=== PATIENT | male | born 1995 | race Caucasian/White ===

== ENCOUNTER 2019-08-16 07:40 | Emergency (ER) | payer SELFPAY ==
[2019-08-16 08:47] VITALS: BP 0/0
--- NOTE | 2019-08-16 08:48 | ED ---
Throat Pain/Nasal Congestion - HPI Summary HPI Summary: This pt is a 24yo M who presents to the ED with left upper jaw pain 4 days. Patient states symptoms have been worsening over the past 2 days. Has been using Anbesol and Orajel [id number] without relief. Has also been taking multiple doses of ibuprofen without relief. He has also tried Tylenol without relief. Patient currently rates his pain at 10/10, constant and throbbing. He denies any difficulty with swallowing or pain with swallowing. He denies any radiation of pain into the ear to the neck. He has never had a dental infection in the past. No history of dental abscesses. States he will follow- up with the dentist on Saturday. - History of Current Complaint Chief Complaint: EDDentalPain Time Seen by Provider: 08/16/19 07:54 Hx Obtained From: Patient Onset/Duration: Sudden Onset Severity: Moderate - Epiglottits Risk Factors Epiglottis Risk Factors: Negative - Allergies/Home Medications Allergies/Adverse Reactions: Allergies Allergy/AdvReac Type Severity Reaction Status Date / Time No Known Allergies Allergy Verified 08/16/19 07:45 PMH/Surg Hx/FS Hx/Imm Hx Previously Healthy: Yes - Immunization History Hx Pertussis Vaccination: No Immunizations Up to Date: Yes Infectious Disease History: No Infectious Disease History: Denies: Traveled Outside the [place] in Last 30 Days - Social History Occupation: Employed Full-time Lives: With Family Alcohol Use: Rare Hx Substance Use: No Substance Use Type: Reports: None Hx Tobacco Use: Yes Smoking Status (MU): Light Every Day Tobacco Smoker Review of Systems Negative: Fever, Chills, Fatigue, Skin Diaphoresis Positive: Dental Pain Negative: Palpitations, Chest Pain Negative: Cough Genitourinary: Negative Positive: no symptoms reported, see HPI Negative: Arthralgia, Myalgia Neurological: Negative All Other Systems Reviewed And Are Negative: Yes Physical Exam Triage Information Reviewed: Yes Vital Signs On Initial Exam: Initial Vitals Temp Pulse Resp BP Pulse Ox 97.7 F 59 18 145/85 98 08/16/19 07:42 08/16/19 07:42 08/16/19 07:42 08/16/19 07:42 08/16/19 07:42 Vital Signs Reviewed: Yes Appearance: Positive: Well-Appearing, Well-Nourished Skin: Positive: Warm, Skin Color Reflects Adequate Perfusion Head/Face: Positive: Normal Head/Face Inspection Eyes: Positive: EOMI, MARY, Conjunctiva Clear Dental: Positive: Other - dental pain to tooth #14 without signs of infection or drainage Neck: Positive: Supple, No Lymphadenopathy Respiratory/Lung Sounds: Positive: Clear to Auscultation, Breath Sounds Present Cardiovascular: Positive: RRR, Pulses are Symmetrical in both Upper and Lower Extremities Musculoskeletal: Positive: Strength/ROM Intact Neurological: Positive: Speech Normal Psychiatric: Positive: Affect/Mood Appropriate Procedures - Sedation Patient Received Moderate/Deep Sedation with Procedure: No Diagnostics - Vital Signs Vital Signs Temp Pulse Resp BP Pulse Ox 08/16/19 07:42 97.7 F 59 18 145/85 98 - Laboratory Lab Statement: Any lab studies that have been ordered have been reviewed, and results considered in the medical decision making process. EENT Course/Dx - Course Course Of Treatment: On arrival into the ED, patient remains afebrile. He is having pain to the left upper jaw over tooth #14. This is a previously pulled tooth. He denies any radiation of pain. Denies any odynophagia or dysphagia. No signs of infection or abscess. Patient is given penicillin as well as some pain control of tramadol 3 days for any discomfort. He will continue to use Anbesol and Orajel [id number]. We'll continue to to use ibuprofen 600 mg 3 times daily. He will follow up with the dentist as scheduled. - Differential Diagnoses Differential Diagnoses: Other - Diagnoses Provider Diagnoses: Fractured tooth, Pain, dental Discharge ED - Sign-Out/Discharge Documenting (check all that apply): Patient Departure - Discharge Plan Condition: Stable Disposition: HOME Prescriptions: Penicillin VK 500 MG TAB(NF) [Penicillin VK 500 mg Tab(NF)] 500 mg PO TID #21 tab MDD 3 traMADol TAB* [Ultram*] 50 mg PO Q8H PRN #9 tab MDD 3 PRN Reason: Pain traMADol TAB* [Ultram*] 50 mg PO Q8H PRN #9 tab MDD 3 PRN Reason: Pain Patient Education Materials: Toothache (ED) Referrals: No Primary Care Phys,NOPCP [Primary Care Provider] - Additional Instructions: Ibuprofen 600mg three times daily On opposite schedule take tramadol as needed for pain Follow up with dentist - Billing Disposition and Condition Condition: STABLE Disposition: Home
== END 2019-08-16 08:26 | disposition home or self-care (01) ==
LOC: ED 07:40
DX: K08.89 Other specified disorders of teeth and supporting structures (principal); K03.81 Cracked tooth; K08.409 Partial loss of teeth, unspecified cause, unspecified class; F17.200 Nicotine dependence, unspecified, uncomplicated
CPT/HCPCS: 99282

== ENCOUNTER 2019-08-31 17:54 | Emergency (ER) | payer SELFPAY ==
[2019-08-31] MEDS ORDERED: Clindamycin CAP* 150 MG PO ONE (18:48)
--- NOTE | 2019-08-31 18:48 | ED ---
Throat Pain/Nasal Congestion - HPI Summary HPI Summary: 24-year-old male presents with dental pain for the past month. He states he was started on a course of penicillin and it seemed to get better but then he ran out of penicillin. He states he has not followed up with a dentist. He states he had this area of edema behind his tooth that was getting better on antibiotics and now is back. Denies any fevers. No pain or swelling around his eyes. No chest pain shortness of breath. No difficulty swallowing. He has been taking ibuprofen for the pain. - History of Current Complaint Chief Complaint: EDDentalPain Time Seen by Provider: 08/31/19 18:19 - Allergies/Home Medications Allergies/Adverse Reactions: Allergies Allergy/AdvReac Type Severity Reaction Status Date / Time No Known Allergies Allergy Verified 08/31/19 17:59 PMH/Surg Hx/FS Hx/Imm Hx Endocrine/Hematology History: Denies: Hx Anticoagulant Therapy Respiratory History: Denies: Hx Asthma Infectious Disease History: No Infectious Disease History: Denies: Traveled Outside the [place] in Last 30 Days - Family History Known Family History: Positive: Non-Contributory - Social History Alcohol Use: Rare Hx Substance Use: No Substance Use Type: Reports: None Hx Tobacco Use: Yes Smoking Status (MU): Light Every Day Tobacco Smoker Review of Systems Negative: Fever Positive: Dental Pain Negative: Chest Pain Negative: Shortness Of Breath All Other Systems Reviewed And Are Negative: Yes Physical Exam Triage Information Reviewed: Yes Vital Signs On Initial Exam: Initial Vitals Temp Pulse Resp BP Pulse Ox 98.4 F 61 14 143/91 97 08/31/19 17:56 08/31/19 17:56 08/31/19 17:56 08/31/19 17:56 08/31/19 17:56 Vital Signs Reviewed: Yes Appearance: Positive: Well-Appearing Skin: Positive: Warm, Dry, Other - area of flutance to left upper jaw behind teeth Head/Face: Positive: Normal Head/Face Inspection Eyes: Positive: Normal, Conjunctiva Clear ENT: Positive: Pharynx normal Respiratory/Lung Sounds: Positive: Clear to Auscultation, Breath Sounds Present Cardiovascular: Positive: Normal, RRR Musculoskeletal: Positive: Normal Neurological: Positive: Normal Psychiatric: Positive: Normal Procedures - Sedation Patient Received Moderate/Deep Sedation with Procedure: No Diagnostics - Vital Signs Vital Signs Temp Pulse Resp BP Pulse Ox 10/21/19 17:56 98.4 F 61 14 143/91 97 - Laboratory Lab Statement: Any lab studies that have been ordered have been reviewed, and results considered in the medical decision making process. EENT Course/Dx - Course Course Of Treatment: 24-year-old male presents with dental pain for the past month. He states he was started on a course of penicillin and it seemed to get better but then he ran out of penicillin. He states he has not followed up with a dentist. He states he had this area of edema behind his tooth that was getting better on antibiotics and now is back. Denies any fevers. No pain or swelling around his eyes. No chest pain shortness of breath. No difficulty swallowing. He has been taking ibuprofen for the pain. On exam has area of edema that is fluctuate behind left upper jaw. Offered to drain the area and patient declined. Will place patient on clindamycin and told to follow up with dentist to get the area drained. Patient understands and agrees the plan. - Differential Diagnoses Differential Diagnoses: Dental Abscess, Dental Caries, Fractured Tooth - Diagnoses Provider Diagnoses: Dental abscess Discharge ED - Sign-Out/Discharge Documenting (check all that apply): Patient Departure - Discharge Plan Condition: Good Disposition: HOME Prescriptions: Clindamycin Cap(NF) [Clindamycin Cap 300 mg Cap(NF)] 300 mg PO TID #20 cap Patient Education Materials: Dental Abscess (ED) Referrals: [facility] [place] [facility] [Outside] Additional Instructions: Take clindamycin three times a day for 7 days Take ibuprofen every 6 hours for pain as needed Avoid hard, crunchy food until seen by dentist Return to ED if develop any new or worsening symptoms Establish care with primary care physician and dentist as soon as possible - Billing Disposition and Condition Condition: GOOD Disposition: Home
[2019-08-31 19:18] VITALS: BP 124/79
== END 2019-08-31 19:17 | disposition home or self-care (01) ==
LOC: ED 17:54
DX: K04.7 Periapical abscess without sinus (principal); F17.200 Nicotine dependence, unspecified, uncomplicated
CPT/HCPCS: 99282; A9270-GY